=== PATIENT | male | born 1955 | race Caucasian/White ===

== ENCOUNTER → 2018-04-30 08:21 | Outpatient (CLI) | payer OTHER, SELFPAY ==
[2018-04-30 10:42] LABS: Absolute Lymphocyte Count 1.39 X10^3/ul (0.83-4.51); Absolute Neutrophil Count 2.6 X10^3/uL (2.0-7.7); Basophil# 0.05 X10^3/uL; Basophil% 1.1 % (0-1); Eosinophil# 0.21 X10^3/uL; Eosinophils% 4.5 % (0-5); Lymphocyte # 1.39 X10^3/ul (4.0); Mean Corp Hgb Conc 33.1 g/gl (32-36); Mean Corpuscular Hgb 30.6 pg (27.0-32.0); Mean Corpuscular Volume 92.5 fL (80-94); Mean Platelet Vol. 11.5 fl (6.2-12.0); Monocyte# 0.34 X10^3/uL; Monocyte% 7.3 % (0-10); Neutrophil # 2.64 X10^3/uL (2.7-7.7); Neutrophil % 57.1 % (47-70); Platelet Count 162 K/mm3 (150-450); RBC Distribution Width CV 13.6 % (11.6-14.6); RBC Distribution Width SD 46.1 fl (35.1-43.9); Red Blood Count 6.04 M/mm3 (4.6-6.2); White Blood Count 4.6 K/mm3 (4.4-11.0)
[2018-04-30 10:46] LABS: Hematocrit 55.9 % (40-54)
[2018-04-30 10:47] LABS: Hemoglobin 18.5 g/dl (13.0-16.5); POSITIVE COUNT NO; POSITIVE DIFFERENTIAL NO; POSITIVE MORPHOLOGY NO
[2018-04-30 11:11] LABS: AST(SGOT) 37 U/L (15-37); Alanine Aminotransfer ALT/SGPT 90 U/L (16-61); Anion Gap 8 (5-15); BUN 32 mg/dL (7-18); BUN/Creat Ratio 23.5 RATIO (10-20); Calcium,Total 8.9 mg/dL (8.5-10.1); Chloride 106 mmol/L (98-107); Cholesterol 183 mg/dL (200); Creatinine, Serum 1.36 mg/dL (0.70-1.30); EST Glomerular Filtration Rate 57 mL/min (>60); Est Glom Filt Rate - Afr Amer 69 mL/min (>60); Glucose 102 mg/dL (74-106); High Density Lipoprotein 63 mg/dL; Potassium 4.3 mmol/L (3.5-5.1); Sodium Level 140 mmol/L (136-145); Triglycerides 90 mg/dL; Very Low Density Lipoprotein 18 mg/dL (5-40)
[2018-05-02 10:44] LABS: Ferritin 160 ng/mL (26-388)
== END ==
PROVIDERS: Visit Provider Family Medicine
DX: I10 Essential (primary) hypertension (principal); E78.5 Hyperlipidemia, unspecified; R79.89 Other specified abnormal findings of blood chemistry; R74.8 Abnormal levels of other serum enzymes
CPT/HCPCS: 36415; 80048; 80061; 82728; 84403; 84450; 84460; 85025

== ENCOUNTER → 2018-06-06 11:08 | Outpatient (CLI) | payer OTHER, SELFPAY ==
[2018-06-06 14:09] LABS: Hematocrit 47.2 % (40-54); Hemoglobin 15.8 g/dl (13.0-16.5); Mean Corp Hgb Conc 33.5 g/gl (32-36); Mean Corpuscular Hgb 30.3 pg (27.0-32.0); Mean Corpuscular Volume 90.4 fL (80-94); Mean Platelet Vol. 11.3 fl (6.2-12.0); Platelet Count 187 K/mm3 (150-450); RBC Distribution Width CV 13.4 % (11.6-14.6); RBC Distribution Width SD 44.1 fl (35.1-43.9); Red Blood Count 5.22 M/mm3 (4.6-6.2); Scan Indicated on CBC? Y/N NO; White Blood Count 4.7 K/mm3 (4.4-11.0)
== END ==
PROVIDERS: Family Provider Family Medicine; PCP Family Medicine; Visit Provider Family Medicine
DX: D58.2 Other hemoglobinopathies (principal)
CPT/HCPCS: 36415; 85027

== ENCOUNTER → 2018-11-15 08:58 | Outpatient (CLI) | payer OTHER, SELFPAY ==
--- NOTE | 2018-11-15 09:02 | US_ITS ---
STUDY: ABDOMINAL ULTRASOUND - RIGHT UPPER QUADRANT REASON FOR VISIT: Male, 63 years old. One-year history of right upper quadrant pain. TECHNIQUE: Ultrasound evaluation of the right upper quadrant was performed with real-time and static novak-scale imaging. TECHNICAL QUALITY: Adequate. COMPARISON: None. FINDINGS: Liver: The liver measures 16.5 cm. Mild degree of fatty infiltration of the liver. The bile ducts are within normal limits. There is hepatic color flow. The direction of portal flow is hepatopetal. There is no demonstrated mass lesion. Gallbladder: Normal distended gallbladder. The gallbladder wall measures 2.6 mm. There is a negative sonographic Huddleston's sign. There is no pericholecystic fluid. There are multiple echogenic structures within the gallbladder, consistent with multiple gallstones. Common Bile Duct (C.B.D.): The common bile duct measures 3.8 mm. Pancreas: There is nonvisualization of the pancreas due to overlying bowel gas. Right Kidney: Normal size of the right kidney. The right kidney measures 10.1 cm x 5.8 cm x 5.4 cm. Normal renal cortex. The right cortex measures 1.6 cm. 2 cysts are seen. The larger measures 1.2 cm x 1.7 size by 1.7 cm. There is no right hydronephrosis. US/Abdomen Limited IMPRESSION: Gallstones. Mild degree of fatty infiltration of the liver. 2. Small right renal cysts. Electronically Signed: Sami Vallejo, at 12:38 EDT , Service support ,
== END ==
PROVIDERS: Family Provider Family Medicine; PCP Family Medicine; Referring Provider Family Medicine; Visit Provider Family Medicine
DX: R10.11 Right upper quadrant pain (principal)
CPT/HCPCS: 76705

== ENCOUNTER → 2018-11-27 10:13 | Outpatient (CLI) | payer OTHER, SELFPAY ==
[2018-11-26 14:02] VITALS: BMI 31.8
[2018-11-27 12:19] LABS: Absolute Lymphocyte Count 1.41 X10^3/ul (0.83-4.51); Absolute Neutrophil Count 3.2 X10^3/uL (2.0-7.7); Basophil# 0.03 X10^3/uL; Basophil% 0.6 % (0-1); Eosinophil# 0.07 X10^3/uL; Eosinophils% 1.3 % (0-5); Hematocrit 52.4 % (40-54); Hemoglobin 17.2 g/dl (13.0-16.5); Lymphocyte # 1.41 X10^3/ul (4.0); Lymphocyte % 27.2 % (19-41); Mean Corp Hgb Conc 32.8 g/gl (32-36); Mean Corpuscular Hgb 29.8 pg (27.0-32.0); Mean Corpuscular Volume 90.7 fL (80-94); Mean Platelet Vol. 11.3 fl (6.2-12.0); Monocyte# 0.51 X10^3/uL; Monocyte% 9.8 % (0-10); Neutrophil # 3.16 X10^3/uL (2.7-7.7); Neutrophil % 60.9 % (47-70); Platelet Count 214 K/mm3 (150-450); RBC Distribution Width CV 13.2 % (11.6-14.6); RBC Distribution Width SD 42.9 fl (35.1-43.9); Red Blood Count 5.78 M/mm3 (4.6-6.2); White Blood Count 5.2 K/mm3 (4.4-11.0)
[2018-11-27 12:24] LABS: POSITIVE COUNT NO; POSITIVE DIFFERENTIAL NO; POSITIVE MORPHOLOGY NO
[2018-11-27 12:39] LABS: AST(SGOT) 29 U/L (15-37); Alanine Aminotransfer ALT/SGPT 43 U/L (16-61); Albumin, Serum 3.9 g/dL (3.2-5.0); Alkaline Phosphatase 88 U/L (45-117); Anion Gap 9 (5-15); BUN 15 mg/dL (7-18); BUN/Creat Ratio 10.5 RATIO (10-20); Bilirubin, Direct 0.19 mg/dL (0.00-0.30); Calcium,Total 8.4 mg/dL (8.5-10.1); Chloride 105 mmol/L (98-107); Cholesterol 161 mg/dL (200); Creatinine, Serum 1.43 mg/dL (0.70-1.30); EST Glomerular Filtration Rate 53 mL/min (>60); Est Glom Filt Rate - Afr Amer 65 mL/min (>60); Globulin 3.2 g/dL (2.2-4.2); Glucose 100 mg/dL (74-106); High Density Lipoprotein 63 mg/dL; Potassium 4.2 mmol/L (3.5-5.1); Protein, Total 7.1 g/dL (6.4-8.2); Sodium Level 138 mmol/L (136-145); Triglycerides 92 mg/dL; Very Low Density Lipoprotein 18 mg/dL (5-40)
== END ==
PROVIDERS: Family Provider Family Medicine; PCP Family Medicine; Referring Provider Family Medicine; Visit Provider Family Medicine
DX: I10 Essential (primary) hypertension (principal); R79.89 Other specified abnormal findings of blood chemistry
CPT/HCPCS: 36415; 80048; 80061; 80076; 84403; 85025

== ENCOUNTER 2018-12-06 09:41 | Day surgery (SDC) | payer OTHER, SELFPAY ==
[2018-11-26 14:02] VITALS: BMI 31.8
[2018-12-06] VITALS (7 sets, daily range): BP systolic 97–150; BP diastolic 60–85; PULSE 65–75; RESP 16–17; TEMP 36.2–37; O2SAT 95–98; BMI 30.7
--- NOTE | 2018-12-06 | GASB_PTH ---
PATIENT: CHOCO PACHECO LOC: EN U#:[id number] AGE/SX: 63/M ROOM: RE12/06/[address]: Dr. Kevan Garza MD : 1955 BED: DIS: 12/06/2018 SPEC #: [id number] RECD: 12/06/18 13:37 STATUS: ABBY MORENA #: [id number] CAYDEN: 12/06/18 00:[address]: Kevan Garza DEPT: SURGICAL PATHOLOGY RECD BY: Mehran Sheffield ENTERED: 12/06/18 13:38 SP TYPE: Gastric Bx OTHR DR: Dr. Poly Pang MD Tissues: A - Gastric mucous membrane B - Gastric mucous membrane C - Gastric mucous membrane D - Rectum, NOS Procedures: Special Stain Group II Surgery Specimen Level IV Alcian Blue/PAS (control) HEADER OPERATION: Colonoscopy, EGD ([facility] – [place]) PRE-OP DIAGNOSIS: Right upper quadrant pain; history of colon polyps TISSUE SUBMITTED: A - Antral biopsy for H. pylori and pathology, B - GE junction biopsies, C - Periampullary biopsy, D - Rectal polyp biopsy MICROSCOPIC DIAGNOSIS A. Antral biopsy: Mild gastritis. See microscopic description and comment. B. GE junction, biopsy: Fragments of gastroesophageal mucosa with chronic inflammation. Intestinal metaplasia (goblet cell metaplasia) is not identified. See comment. C. Periampullary biopsy: Fragments of small intestinal mucosa, no pathologic diagnosis. D. Rectal polyp, biopsy: Fragments of hyperplastic polyp. SJ:dexter 12/09/18 COMMENT A. The results of immunohistochemistry for Helicobacter pylori will be reported separately ([id number]). B. Alcian blue/PAS stain with matched control is used in the evaluation of the specimen. MICROSCOPIC DESCRIPTION Slides are reviewed. A. The specimen shows fragments of gastric mucosa with chronic inflammatory cell infiltrates in the lamina propria consisting of lymphocytes and plasma cells, consistent with mild chronic gastritis. GROSS DESCRIPTION A - Received in fixative is one container labeled with the patient's name and designated antral biopsy. The specimen consists of multiple irregular fragments of light bolivar soft tissue that in aggregate measure 0.8 x 0.4 x 0.1 cm. The specimen is totally submitted in one cassette. B - Received in fixative is one container labeled with the patient's name and designated GE junction biopsy. The specimen consists of two irregular fragments of light bolivar soft tissue that in aggregate measure 0.8 x 0.2 x 0.1 cm. The specimen is totally submitted in one cassette. C - Received in fixative is one container labeled with the patient's name and designated periampullary biopsy. The specimen consists of multiple irregular fragments of light bolivar soft tissue that in aggregate measure 1 x 0.2 x 0.1 cm. The specimen is totally submitted in one cassette. D - Received in fixative is one container labeled with the patient's name and designated rectal polyp biopsy. The specimen consists of multiple irregular fragments of light bolivar soft tissue that in aggregate measure 0.6 x 0.3 x 0.1 cm. The specimen is totally submitted in one cassette. / SJ:rg 12/06/18 TC:3 CPT: 89034 x4, [id number]
--- NOTE | 2018-12-06 10:45 | IMM_PTH ---
PATIENT: CHOCO PACHECO LOC: EN U#:[id number] AGE/SX: 63/M ROOM: RE12/06/[address]: Dr. Kevan Garza MD : 1955 BED: DIS: 12/06/2018 SPEC #: [id number] RECD: 12/06/18 12:27 STATUS: ABBY RELesly #: [id number] CAYDEN: 12/06/18 10:[address]: Kevan Garza DEPT: IMMUNOHISTOCHEMISTRY RECD BY: Coretta Heard ENTERED: 12/06/18 14:48 SP TYPE: IMMUNO OTHR DR: Dr. Poly Pang MD Tissues: A - Stomach, NOS Procedures: H Pylori (initial) PHYSICIAN & INSTITUTION [place] [id number] SPECIMEN INFORMATION: Tissue Source: A - Antral biopsy Clinical Info: Right upper quadrant pain; history of colon polyps Specimen Number: [id number] CPT code: 61996 METHODOLOGY: Deparaffinized sections of prefer/formalin-fixed tissue or PAP/DQ stained slides are incubated with monoclonal/polyclonal antibodies/oligonucleotide probes. Localization is made via biotin free immunoperoxidase method. Appropriate controls are performed and reacted as expected. Results on target cell population are indicated in the following table: RESULTS: ANTIBODY / CLONE RESULT Block A H Pylori (polyclonal) negative These tests were developed and their performance characteristics determined by [facility]. They may not have been cleared or approved by the U.S. Food and Drug Administration. The FDA has determined that such clearance or approval is not necessary. INTERPRETATION: A. Antral biopsy: Negative for Helicobacter pylori organisms. SJ:dexter 12/09/18
--- NOTE | 2018-12-06 11:27 | OP.ENDO_ITS ---
12/06/2018 [address] [place] [address] Re : Upper GI endoscopy procedure for Reg Lozada Dear Dr. Pang This procedure was performed on Thursday, December 06, 2018. My impressions and recommendations are as follows: Impressions : - Mucosal variant in the duodenum. Biopsied. - Esophageal mucosal changes suspicious for Tristan's esophagus. Biopsied. - Biopsies were taken with a cold forceps for Helicobacter pylori testing. Recommendations : - Discharge patient to home. - Resume previous diet. - Continue present medications. - Await pathology results. My findings are described in the full procedure note, which is enclosed. If I can be of further assistance, please feel free to contact me at Doctor phone number(s): , Work: . Sincerely, Kevan Garza MD 12/06/2018 11:27:03 AM This report has been signed electronically.
--- NOTE | 2018-12-06 11:29 | OP.ENDO_ITS ---
12/06/2018 [address] [place] [address] Re : Colonoscopy procedure for Reg Lozada Dear Dr. Pang This procedure was performed on Thursday, December 06, 2018. My impressions and recommendations are as follows: Impressions : - One polyp in the rectum. Biopsied. - Internal hemorrhoids. Recommendations : - Repeat colonoscopy after studies are complete for surveillance based on pathology results. - Continue present medications. My findings are described in the full procedure note, which is enclosed. If I can be of further assistance, please feel free to contact me at Doctor phone number(s): , Work: . Sincerely, Kevan Garza MD 12/06/2018 11:29:07 AM This report has been signed electronically.
== END 2018-12-06 12:06 | disposition home or self-care (01) ==
LOC: EN 09:41 → AC 09:42
PROVIDERS: Family Provider Family Medicine; PCP Family Medicine; Referring Provider Family Medicine; Visit Provider Surgery
PROC: 0DJD8ZZ Inspection of Lower Intestinal Tract, Via Natural or Artificial Opening Endoscopic (ICD-10-PCS; CPT 45378; principal; 2018-12-06 10:40)
DX: K29.70 Gastritis, unspecified, without bleeding (principal); K21.9 Gastro-esophageal reflux disease without esophagitis; K62.1 Rectal polyp; K64.1 Second degree hemorrhoids; Z86.010 Personal history of colon polyps; K80.20 Calculus of gallbladder without cholecystitis without obstruction; E78.00 Pure hypercholesterolemia, unspecified; I10 Essential (primary) hypertension; Z79.82 Long term (current) use of aspirin; Z79.899 Other long term (current) drug therapy; Z87.891 Personal history of nicotine dependence
CPT/HCPCS: 43239; 45380; 88305; 88313; 88342; J7120

== ENCOUNTER → 2019-05-14 14:18 | Outpatient (CLI) | payer BC, SELFPAY ==
[2018-12-06 09:57] VITALS: BMI 30.7
[2019-05-14 15:45] LABS: Absolute Lymphocyte Count 1.59 X10^3/uL (0.83-4.51); Basophil# 0.07 X10^3/uL; Basophil% 1.1 % (0-1); Eosinophil# 0.07 X10^3/uL; Eosinophils% 1.1 % (0-5); Lymphocyte # 1.59 X10^3/ul (4.0); Lymphocyte % 24.8 % (19-41); Mean Corp Hgb Conc 33.9 g/dL (32-36); Mean Corpuscular Hgb 30.3 pg (27.0-32.0); Mean Corpuscular Volume 89.3 fL (80-94); Mean Platelet Vol. 10.7 fl (6.2-12.0); Monocyte# 0.67 X10^3/uL; Monocyte% 10.5 % (0-10); NRBC Flagged by Analyzer 0 % (0-5); Neutrophil # 3.99 X10^3/uL (2.7-7.7); Neutrophil % 62.2 % (47-70); Platelet Count 222 K/mm3 (150-450); RBC Distribution Width CV 13.2 % (11.6-14.6); RBC Distribution Width SD 43.4 fl (35.1-43.9); Red Blood Count 6.28 M/mm3 (4.6-6.2); White Blood Count 6.4 K/mm3 (4.4-11.0)
[2019-05-14 15:51] LABS: Hematocrit 56.1 % (40-54)
[2019-05-14 16:05] LABS: AST(SGOT) 26 U/L (15-37); Alanine Aminotransfer ALT/SGPT 44 U/L (16-61); Albumin, Serum 3.8 g/dL (3.2-5.0); Alkaline Phosphatase 77 U/L (45-117); Anion Gap 7 (5-15); BUN 17 mg/dL (7-18); BUN/Creat Ratio 13.6 RATIO (10-20); Bilirubin, Direct 0.16 mg/dL (0.00-0.30); Calcium,Total 8.8 mg/dL (8.5-10.1); Chloride 105 mmol/L (98-107); Creatinine, Serum 1.25 mg/dL (0.70-1.30); EST Glomerular Filtration Rate 62 mL/min (>60); Est Glom Filt Rate - Afr Amer 75 mL/min (>60); Globulin 3.6 g/dL (2.2-4.2); Glucose 84 mg/dL (74-106); Potassium 3.6 mmol/L (3.5-5.1); Protein, Total 7.4 g/dL (6.4-8.2); Sodium Level 139 mmol/L (136-145)
== END ==
PROVIDERS: Family Provider Family Medicine; PCP Family Medicine; Referring Provider Family Medicine; Visit Provider Family Medicine
DX: I10 Essential (primary) hypertension (principal); R79.89 Other specified abnormal findings of blood chemistry
CPT/HCPCS: 36415; 80048; 80076; 84403; 85025

== ENCOUNTER → 2019-06-05 16:47 | Outpatient (CLI) | payer BC, SELFPAY ==
[2018-12-06 09:57] VITALS: BMI 30.7
[2019-06-05 18:00] LABS: Absolute Lymphocyte Count 2.15 X10^3/uL (0.83-4.51); Absolute Neutrophil Count 4.2 X10^3/uL (2.0-7.7); Basophil# 0.07 X10^3/uL; Eosinophil# 0.18 X10^3/uL; Eosinophils% 2.5 % (0-5); Hematocrit 52.5 % (40-54); Hemoglobin 17.6 g/dL (13.0-16.5); Lymphocyte # 2.15 X10^3/ul (4.0); Lymphocyte % 29.5 % (19-41); Mean Corp Hgb Conc 33.5 g/dL (32-36); Mean Corpuscular Hgb 30.2 pg (27.0-32.0); Mean Corpuscular Volume 90.2 fL (80-94); Mean Platelet Vol. 10.9 fl (6.2-12.0); Monocyte# 0.66 X10^3/uL; Monocyte% 9.1 % (0-10); NRBC Flagged by Analyzer 0 % (0-5); Neutrophil # 4.22 X10^3/uL (2.7-7.7); Neutrophil % 57.8 % (47-70); Platelet Count 235 K/mm3 (150-450); RBC Distribution Width CV 13.2 % (11.6-14.6); RBC Distribution Width SD 43.6 fl (35.1-43.9); Red Blood Count 5.82 M/mm3 (4.6-6.2); White Blood Count 7.3 K/mm3 (4.4-11.0)
== END ==
PROVIDERS: Family Provider Family Medicine; PCP Family Medicine; Referring Provider Family Medicine; Visit Provider Family Medicine
DX: D58.2 Other hemoglobinopathies (principal)
CPT/HCPCS: 36415; 85025

== ENCOUNTER → 2020-01-05 08:22 | Outpatient (CLI) | payer BC, SELFPAY ==
[2020-01-05 08:18] VITALS: BMI 28.7
--- NOTE | 2020-01-05 08:24 | RAD_ITS ---
STUDY: X-RAY - LEFT ANKLE REASON FOR EXAM: Male, 64 years old. left achilles pain, no trauma TECHNIQUE: 3 view(s) of the ankle. COMPARISON: None. FINDINGS: Normal visualized distal tibia and fibula. Normal medial and lateral malleoli. Normal tibiotalar articulation and ankle mortise. Normal visualized talus and calcaneus. The visualized subtalar, talonavicular, calcaneocuboid and tarsal articulations are normal. There is swelling in lower part of the Achilles tendon suggesting partial tear. RAD/Ankle min 3 Views IMPRESSION: There is swelling in lower part of the Achilles tendon suggesting partial tear. Electronically Signed: Rachel Jeffers, at 10:18 EDT Tel , Service support ,
== END ==
PROVIDERS: PCP Family Medicine; Referring Provider Physician Assistant; Visit Provider Physician Assistant
DX: M25.572 Pain in left ankle and joints of left foot (principal)
CPT/HCPCS: 73610

== ENCOUNTER → 2020-02-04 15:40 | Outpatient (CLI) | payer BC, SELFPAY ==
[2020-01-05 08:18] VITALS: BMI 28.7
[2020-02-04 18:18] LABS: Absolute Neutrophil Count 4.8 X10^3/uL (2.0-7.7); Basophil# 0.06 X10^3/uL; Basophil% 0.8 % (0-1); Eosinophils% 1.4 % (0-5); Hematocrit 50.6 % (40-54); Hemoglobin 16.7 g/dL (13.0-16.5); Lymphocyte % 19.8 % (19-41); Mean Corpuscular Hgb 30.8 pg (27.0-32.0); Mean Corpuscular Volume 93.4 fL (80-94); Monocyte# 0.65 X10^3/uL; Monocyte% 9.2 % (0-10); NRBC Flagged by Analyzer 0 % (0-5); Neutrophil # 4.83 X10^3/uL (2.7-7.7); Neutrophil % 68.5 % (47-70); Platelet Count 202 K/mm3 (150-450); RBC Distribution Width CV 13.4 % (11.6-14.6); RBC Distribution Width SD 45.6 fl (35.1-43.9); Red Blood Count 5.42 M/mm3 (4.6-6.2); White Blood Count 7.1 K/mm3 (4.4-11.0)
[2020-02-04 18:34] LABS: AST(SGOT) 38 U/L (15-37); Alanine Aminotransfer ALT/SGPT 68 U/L (16-61); Anion Gap 9 (5-15); BUN 23 mg/dL (7-18); Calcium,Total 8.9 mg/dL (8.5-10.1); Chloride 105 mmol/L (98-107); Cholesterol 180 mg/dL (200); Creatinine, Serum 1.21 mg/dL (0.70-1.30); EST Glomerular Filtration Rate 65 mL/min (>60); Est Glom Filt Rate - Afr Amer 78 mL/min (>60); Glucose 82 mg/dL (74-106); High Density Lipoprotein 71 mg/dL; Potassium 3.8 mmol/L (3.5-5.1); Sodium Level 139 mmol/L (136-145); Triglycerides 104 mg/dL; Very Low Density Lipoprotein 21 mg/dL (5-40)
== END ==
PROVIDERS: PCP Family Medicine; Visit Provider Family Medicine
DX: I10 Essential (primary) hypertension (principal); R79.89 Other specified abnormal findings of blood chemistry; E78.5 Hyperlipidemia, unspecified
CPT/HCPCS: 36415; 80048; 80061; 84403; 84450; 84460; 85025

== ENCOUNTER → 2020-10-26 09:49 | Outpatient (CLI) | payer BC, SELFPAY ==
[2020-09-16 13:16] VITALS: BMI 31.2
[2020-10-26 12:14] LABS: Absolute Lymphocyte Count 1.61 X10^3/uL (0.83-4.51); Absolute Neutrophil Count 7.1 X10^3/uL (2.0-7.7); Basophil# 0.07 X10^3/uL; Basophil% 0.7 % (0-1); Eosinophil# 0.12 X10^3/uL; Eosinophils% 1.2 % (0-5); Hematocrit 47.2 % (40-54); Hemoglobin 15.8 g/dL (13.0-16.5); Lymphocyte # 1.61 X10^3/ul (4.0); Lymphocyte % 16.5 % (19-41); Mean Corp Hgb Conc 33.5 g/dL (32-36); Mean Corpuscular Hgb 30.4 pg (27.0-32.0); Mean Corpuscular Volume 90.9 fL (80-94); Mean Platelet Vol. 11.5 fl (6.2-12.0); Monocyte% 8.2 % (0-10); NRBC Flagged by Analyzer 0 % (0-5); Neutrophil % 72.9 % (47-70); Platelet Count 218 K/mm3 (150-450); RBC Distribution Width CV 13.2 % (11.6-14.6); RBC Distribution Width SD 44.1 fl (35.1-43.9); Red Blood Count 5.19 M/mm3 (4.6-6.2); White Blood Count 9.8 K/mm3 (4.4-11.0)
[2020-10-26 12:33] LABS: Anion Gap 7 (5-15); BUN 27 mg/dL (7-18); BUN/Creat Ratio 17.3 RATIO (10-20); Chloride 104 mmol/L (98-107); Cholesterol 193 mg/dL (200); Creatinine, Serum 1.56 mg/dL (0.70-1.30); EST Glomerular Filtration Rate 48 mL/min (>60); Est Glom Filt Rate - Afr Amer 58 mL/min (>60); Glucose 74 mg/dL (74-106); High Density Lipoprotein 80 mg/dL; Potassium 4.4 mmol/L (3.5-5.1); Sodium Level 137 mmol/L (136-145); Triglycerides 99 mg/dL; Very Low Density Lipoprotein 20 mg/dL (5-40)
== END ==
PROVIDERS: PCP Family Medicine; Referring Provider Family Medicine; Visit Provider Family Medicine
DX: E78.5 Hyperlipidemia, unspecified (principal); I10 Essential (primary) hypertension
CPT/HCPCS: 36415; 80048; 80061; 85025

== ENCOUNTER → 2021-05-27 16:05 | Outpatient (CLI) | payer BC, SELFPAY ==
[2021-05-27 17:56] LABS: Absolute Lymphocyte Count 1.83 X10^3/uL (0.83-4.51); Absolute Neutrophil Count 3.4 X10^3/uL (2.0-7.7); Basophil# 0.04 X10^3/uL; Basophil% 0.7 % (0-1); Eosinophil# 0.22 X10^3/uL; Eosinophils% 3.6 % (0-5); Hematocrit 48.9 % (40-54); Hemoglobin 16.3 g/dL (13.0-16.5); Lymphocyte # 1.83 X10^3/ul (0.83-4.51); Mean Corp Hgb Conc 33.3 g/dL (32-36); Mean Corpuscular Hgb 30.1 pg (27.0-32.0); Mean Corpuscular Volume 90.2 fL (80-94); Mean Platelet Vol. 11.6 fl (6.2-12.0); Monocyte# 0.58 X10^3/uL; Monocyte% 9.5 % (0-10); NRBC Flagged by Analyzer 0 % (0-5); Neutrophil # 3.42 X10^3/uL (2.7-7.7); Platelet Count 228 K/mm3 (150-450); RBC Distribution Width SD 39.7 fl (35.1-43.9); Red Blood Count 5.42 M/mm3 (4.6-6.2); White Blood Count 6.1 K/mm3 (4.4-11.0)
[2021-05-27 18:15] LABS: Anion Gap 8 (5-15); BUN 25 mg/dL (7-18); BUN/Creat Ratio 17.5 RATIO (10-20); Calcium,Total 9.1 mg/dL (8.5-10.1); Chloride 104 mmol/L (98-107); Cholesterol 189 mg/dL (200); Creatinine, Serum 1.43 mg/dL (0.70-1.30); EST Glomerular Filtration Rate 53 mL/min (>60); Est Glom Filt Rate - Afr Amer 64 mL/min (>60); Glucose 93 mg/dL (74-106); High Density Lipoprotein 62 mg/dL; Potassium 3.8 mmol/L (3.5-5.1); Sodium Level 138 mmol/L (136-145); Triglycerides 132 mg/dL; Very Low Density Lipoprotein 26 mg/dL (5-40)
== END ==
PROVIDERS: PCP Family Medicine; Referring Provider Family Medicine; Visit Provider Family Medicine
DX: I10 Essential (primary) hypertension (principal); E78.5 Hyperlipidemia, unspecified; R79.89 Other specified abnormal findings of blood chemistry
CPT/HCPCS: 36415; 80048; 80061; 85025

== ENCOUNTER 2021-09-15 13:59 | Outpatient (CLI) | payer BC, SELFPAY | END 2021-09-15 23:59 | disposition short-term general hospital (02) | LOC: LABSPEC 14:00 | PROVIDERS: PCP Family Medicine; Referring Provider Physician Assistant; Visit Provider Physician Assistant | DX: U07.1 COVID-19 (principal) | CPT/HCPCS: 87635; U0003; U0005 ==

== ENCOUNTER → 2022-03-14 | Outpatient (CLI) | payer BC, SELFPAY ==
[2022-03-14 12:30] LABS: Erythrocyte Sedimentation Rate 8 mm/hr (0-20)
[2022-03-14 12:35] LABS: Absolute Lymphocyte Count 1.41 X10^3/uL (0.83-4.51); Absolute Neutrophil Count 2.5 X10^3/uL (2.0-7.7); Basophil# 0.04 X10^3/uL; Basophil% 0.9 % (0-1); Eosinophil# 0.11 X10^3/uL; Eosinophils% 2.5 % (0-5); Hematocrit 51.2 % (40-54); Hemoglobin 16.8 g/dL (13.0-16.5); Lymphocyte # 1.41 X10^3/ul (0.83-4.51); Lymphocyte % 31.5 % (19-41); Mean Corp Hgb Conc 32.8 g/dL (32-36); Mean Corpuscular Hgb 29.9 pg (27.0-32.0); Mean Corpuscular Volume 91.3 fL (80-94); Mean Platelet Vol. 11.3 fl (6.2-12.0); Monocyte# 0.43 X10^3/uL; Monocyte% 9.6 % (0-10); NRBC Flagged by Analyzer 0 % (0-5); Neutrophil # 2.48 X10^3/uL (2.7-7.7); Neutrophil % 55.3 % (47-70); Platelet Count 196 K/mm3 (150-450); RBC Distribution Width CV 12.8 % (11.6-14.6); Red Blood Count 5.61 M/mm3 (4.6-6.2); White Blood Count 4.5 K/mm3 (4.4-11.0)
[2022-03-14 13:03] LABS: AST(SGOT) 25 U/L (15-37); Alanine Aminotransfer ALT/SGPT 45 U/L (16-61); Albumin, Serum 3.7 g/dL (3.2-5.0); Alkaline Phosphatase 79 U/L (45-117); Anion Gap 7 (5-15); BUN 20 mg/dL (7-18); BUN/Creat Ratio 15.7 RATIO (10-20); Calcium,Total 9.1 mg/dL (8.5-10.1); Chloride 105 mmol/L (98-107); Creatinine, Serum 1.27 mg/dL (0.70-1.30); EST Glomerular Filtration Rate 61 mL/min (>60); Est Glom Filt Rate - Afr Amer 73 mL/min (>60); Globulin 3.7 g/dL (2.2-4.2); Glucose 107 mg/dL (74-106); Potassium 3.7 mmol/L (3.5-5.1); Protein, Total 7.4 g/dL (6.4-8.2); Sodium Level 137 mmol/L (136-145); Thyroid Stim Hormone (TSH) 1.56 uIU/mL (0.358-3.74)
== END | disposition home or self-care (01) ==
LOC: MFPLAB 10:15
PROVIDERS: PCP Family Medicine; Referring Provider Family Medicine; Visit Provider Family Medicine
DX: R53.81 Other malaise (principal)
CPT/HCPCS: 36415; 80053; 84443; 85025; 85652

== ENCOUNTER → 2022-09-01 | Outpatient (CLI) | payer MEDICARE, OTHER, SELFPAY ==
--- NOTE | 2022-09-01 08:12 | CT_ITS ---
STUDY: CT MAXILLOFACIAL SINUSES REASON FOR EXAM: Male, 67 years old. SINUSITIS RADIATION DOSAGE (If Supplied By Facility): CTDIvol = ( 33.06 ) mGy, DLP = ( 804.92 ) mGycm TECHNIQUE: The patient was scanned in a multi detector CT scanner. High resolution axial imaging was performed without the administration of intravenous contrast material. Sagittal and coronal images were reconstructed. Individualized dose optimization techniques were used for this CT. COMPARISON: None. FINDINGS: FRONTAL SINUSES: Normal aeration, without mucosal inflammatory disease. ETHMOIDAL SINUSES: Normal aeration, without mucosal inflammatory disease. MAXILLARY SINUSES: Normal aeration, without mucosal inflammatory disease. SPHENOIDAL SINUSES: Minimal mucosal thickening of the right sphenoid sinus. There is patency of the bilateral maxillary infundibuli with normal uncinate processes, ethmoid bullae, and hiatus semilunaris. Normal bilateral middle turbinates. Normal bilateral inferior turbinates. There is a mild left sided nasal septal deviation, but without a nasal septal spur. There is patency of the bilateral nasal airways. The visualized osseous structures are normal. The visualized bilateral orbital contents are normal. CT/Sinus/Facial Bone IMPRESSION: Minimal mucosal thickening of the right sphenoid sinus. Minimal left-sided nasal septal deviation. Electronically Signed: Sami Vallejo MD at 9:20 EST ,
== END | disposition home or self-care (01) ==
PROVIDERS: PCP Family Medicine; Referring Provider Otolaryngology; Visit Provider Otolaryngology
DX: J34.2 Deviated nasal septum (principal); J32.8 Other chronic sinusitis
CPT/HCPCS: 70486

== ENCOUNTER → 2024-06-27 | Outpatient (CLI) | payer MEDICARE, OTHER, SELFPAY ==
[2024-06-27 12:36] LABS: Protein, Urine (Random) 11.9 mg/dL (<11.9); Protein:Creat Ratio 132 mg/g CRE (0-200)
[2024-06-27 12:55] LABS: AST(SGOT) 18 U/L (15-37); Alanine Aminotransfer ALT/SGPT 46 U/L (16-61); Anion Gap 4 (5-15); BUN 21 mg/dL (7-18); BUN/Creat Ratio 17.2 RATIO (10-20); Calcium,Total 8.9 mg/dL (8.5-10.1); Chloride 109 mmol/L (98-107); Cholesterol 208 mg/dL (200); Creatinine, Serum 1.22 mg/dL (0.70-1.30); EST Glomerular Filtration Rate 63 mL/min (>60); Est Glom Filt Rate - Afr Amer 76 mL/min (>60); Glucose 97 mg/dL (74-106); High Density Lipoprotein 64 mg/dL; Potassium 3.9 mmol/L (3.5-5.1); Sodium Level 141 mmol/L (136-145); Triglycerides 113 mg/dL; Very Low Density Lipoprotein 23 mg/dL (5-40)
== END | disposition home or self-care (01) ==
LOC: MFPLAB 09:50
PROVIDERS: PCP Family Medicine; Visit Provider Family Medicine
DX: E78.5 Hyperlipidemia, unspecified (principal); I10 Essential (primary) hypertension
CPT/HCPCS: 36415; 80048; 80061; 82570; 84156; 84443; 84450; 84460

== ENCOUNTER → 2025-07-13 | Outpatient (CLI) | payer MEDICARE, SELFPAY ==
[2025-07-13 17:34] LABS: Hematocrit 49.6 % (40-54); Hemoglobin 16.8 g/dL (13.0-16.5); Mean Corp Hgb Conc 33.9 g/dL (32-36); Mean Corpuscular Volume 88.6 fL (80-94); Mean Platelet Vol. 10.8 fl (6.2-12.0); Platelet Count 231 K/mm3 (150-450); RBC Distribution Width CV 12.3 % (11.6-14.6); RBC Distribution Width SD 40.6 fl (35.1-43.9); Red Blood Count 5.60 M/mm3 (4.6-6.2); White Blood Count 8.3 K/mm3 (4.4-11.0)
[2025-07-13 18:47] LABS: AST(SGOT) 27 U/L (<=37); Alanine Aminotransfer ALT/SGPT 40 U/L (<=46); Albumin, Serum 4.7 g/dL (3.4-4.8); Alkaline Phosphatase 69 U/L (40-129); Anion Gap 17 (5-15); BUN 22 mg/dL (4-19); BUN/Creat Ratio 18.1 RATIO (10-20); Calcium,Total 9.7 mg/dL (7.6-11.0); Carbon Dioxide 22.6 mmol/L (21.0-32.0); Chloride 101 mmol/L (98-108); Cholesterol 250 mg/dL (<=200); Globulin 2.9 g/dL (2.2-4.2); Glucose 88 mg/dL (70-99); Low Density Lipoprotein Calc. 164 mg/dL; Potassium 3.6 mmol/L (3.3-5.1); Triglycerides 104 mg/dL; Troponin T High Sensitivity 10 ng/L (<=22); Very Low Density Lipoprotein 21 mg/dL (5-40); Vitamin D,25 Hydroxy 24.9 ng/mL (30-100); cholesterol:hdl ratio screen 3.68
[2025-07-20 12:09] LABS: Testosterone, % Free 2.50 % (1.50-4.20); Testosterone, Free 5.80 ng/dL (5.00-21.00)
== END | disposition home or self-care (01) ==
LOC: MTLAB 16:39
PROVIDERS: PCP Family Medicine; Referring Provider Family Medicine; Visit Provider Family Medicine
DX: E78.5 Hyperlipidemia, unspecified (principal); I10 Essential (primary) hypertension; R07.9 Chest pain, unspecified; R79.89 Other specified abnormal findings of blood chemistry
CPT/HCPCS: 36415; 80053; 80061; 82306; 84402; 84403; 84443; 84484; 85027

== ENCOUNTER → 2025-08-04 | Outpatient (CLI) | payer MEDICARE, SELFPAY ==
--- NOTE | 2025-08-04 07:07 | ECHOD_ITS ---
Reason For Study Reason For Study: CHEST PAIN Procedure This was a 2D Doppler, Color Flow transthoracic echocardiogram. The patient is in sinus rhythm. Exam performed in department. Left Ventricle Normal LV size. The left ventricular ejection fraction is 60 %. No regional wall motion abnormalities noted. Right Ventricle Normal RV size. Normal systolic function. Atria Normal left atrium. Normal right atrium. Mitral Valve Normal mitral valve. Tricuspid Valve Normal tricuspid valve. Aortic Valve Normal aortic valve. Pulmonic Valve Normal pulmonic valve. Great Vessels Normal aortic root. The pulmonary artery is normal size. Inferior vena cava collapse with respiration. Pericardium/Pleural No pericardial effusion. MMode/2D Measurements & Calculations LVIDd: 5.1 cm IVSd: 1.00 cm LVOT diam: 2.1 cm LVIDs: 3.3 cm LVPWd: 1.0 cm LVOT area: 3.4 cm2 RVDd: 4.2 cm FS: 36.0 % Ao root diam: 3.3 cm asc Aorta Diam: 3.3 cm LAV(MOD- bp): 49.9 ml LAV(MOD- bp) Indexed: 23.5 ml/m2 LAV(MOD- sp2): 61.0 ml LAV(MOD- sp4): 39.2 ml LVAd ap4: 31.6 cm2 LVAd ap2: 30.1 cm2 EDV(MOD- bp): 100.8 ml LVLd ap4: 8.1 cm LVLd ap2: 8.0 cm ESV(MOD- bp): 41.6 ml EDV(MOD-sp4): 100.5 ml EDV(MOD-sp2): 97.7 ml EF(MOD- bp): 58.7 % EDV(sp4-el): 104.1 ml EDV(sp2-el): 96.3 ml LVAs ap4: 17.7 cm2 LVAs ap2: 18.7 cm2 LVLs ap4: 6.8 cm LVLs ap2: 7.1 cm ESV(MOD-sp4): 38.6 ml ESV(MOD-sp2): 44.8 ml ESV(sp4-el): 39.2 ml ESV(sp2-el): 41.8 ml EF(MOD-sp4): 61.6 % EF(MOD-sp2): 54.1 % EF(sp4-el): 62.4 % SV(MOD-sp4): 61.9 ml SV(MOD-sp2): 52.8 ml SV(sp4- el): 65.0 ml SI(MOD-sp4): 29.2 ml/m2 SI(MOD-sp2): 24.9 ml/m2 Ao sinus diam: 3.[address] Junction: 2.8 cm LA A4 area: 16.5 cm2 LA dimension(2D): 3.9 cm TAPSE: 2.1 cm RA A4 area: 16.0 cm2 Time Measurements MV dec time: 0.20 sec Doppler Measurements & Calculations MV E max moses: 75.9 cm/sec Lat Peak E' Moses: 11.5 cm/sec Med Peak E' Moses: 9.7 cm/sec MV A max moses: 72.4 cm/sec E/E' lat: 6.6 E/E' med: 7.9 MV E/A: 1.0 MV dec slope: 387.5 cm/sec2 Ao V2 max: 177.2 cm/sec LV V1 max: 139.1 cm/sec Ao max P.6 mmHg LV V1 max P.7 mmHg Ao V2 mean: 112.7 cm/sec LV V1 mean P.8 mmHg Ao mean P.9 mmHg LV V1 mean: 89.5 cm/sec Ao V2 VTI: 36.0 cm LV V1 VTI: 27.8 cm AV (velocity ratio): 0.77 RAMON(I,D): 2.7 cm2 RAMON(V,D): 2.7 cm2 SV(LVOT): 95.6 ml PA V2 max: 104.6 cm/sec ECHO/Echo Complete Interpretation Summary Normal LV size. The left ventricular ejection fraction is 60 %. Structurally normal valves. Ordering Physician: Victorino Benz Referring Physician: Victorino Benz Performed By: Sandra Catalan RDCS
--- OUTSIDE RECORDS SUMMARY | 2025-08-04 07:08 | XMS RPT_ITS | CCD ---
Author Organization [facility] Care Team Providers Care [employer] Operator Name Role Phone Poly Pang Attending Unavailable Poly Pang Primary Care Unavailable Medications Current Medications Medication Drug Class(es) Dates Sig (Normalized) Sig (Original) amLODIPine 10 mg oral tablet (2 sources) Dihydropyridine Calcium Channel [employer]by Start: 11-27-19 19 take 10 mg by mouth once daily Amlodipine Active 10 MG PO DAILY November 25, 2018 11:00pm hydroCHLOROthiazide 12.5 mg oral tablet (2 sources) Thiazide Diuretic Start: 11-27-19 19 take 12.5 mg by mouth once daily Hydrochlorothiazide Active 12.5 MG PO DAILY November 25, 2018 11:00pm hydroCHLOROthiazide 12.5 mg / lisinopril 20 mg oral tablet (2 sources) Thiazide Diuretic, Angiotensin Converting Enzyme Inhibitor Start: 09-16-19 21 take 1 tablet by mouth once daily Lisinopril-Hydrochlor othiazide Active 1 TABLET PO DAILY September 16, 2020 12:00am rosuvastatin calcium 40 mg oral tablet (2 sources) HMG-CoA Reductase Inhibitor Start: 11-27-19 19 take 40 mg by mouth once daily Rosuvastatin Active 40 MG PO DAILY November 25, 2018 11:00pm sucralfate 1000 mg oral tablet (2 sources) Aluminum Complex Start: 11-27-19 19 take 1 g by mouth at bedtime Sucralfate Active 1 GM PO before meals and at bedtime 120 November 25, 2018 11:00pm tadalafil 2.5 mg oral tablet (2 sources) Phosphodiesterase 5 Inhibitor Start: 11-27-19 19 take 1 tablet by mouth once daily Tadalafil (Cialis) 2.5 mg tablet Active 2.5 MG PO DAILY November 25, 2018 11:00pm Completed/Discontinued Medications Medication Drug Class(es) Dates Sig (Normalized) Sig (Original) anastrozole 1 mg oral tablet (2 sources) Aromatase Inhibitor Start: 09-16-2020 End: 09-16-2020 take 0.25 mg by mouth every week Anastrozole Discontinued 0.25 MG PO .weekly September 16, 2020 12:00am September 16, 2020 6:31pm aspirin 81 mg delayed release oral tablet (2 sources) Platelet Aggregation Inhibitor, Nonsteroidal Anti-inflammatory Drug Start: 11-26-2018 End: 09-16-2020 Aspirin (Adult Low Dose Aspirin) 81 mg tablet,delayed release (DR/EC) Discontinued 81 MG PO DAILY November 25, 2018 11:00pm September 16, 2020 1:17pm meloxicam 15 mg oral tablet (2 sources) Nonsteroidal Anti-inflammatory Drug Start: 01-05-2020 End: 09-16-2020 take 15 mg by mouth once daily Meloxicam Discontinued 15 MG PO DAILY January 04, 2020 11:00pm September 16, 2020 1:18pm omeprazole 20 mg delayed release oral tablet (2 sources) Proton Pump Inhibitor Start: 11-26-2018 End: 09-16-2020 take 20 mg by mouth once daily Omeprazole Discontinued 20 MG PO DAILY 60 November 25, 2018 11:00pm September 16, 2020 1:18pm 1 ml testosterone cypionate 200 mg/ml injection (2 sources) Androgen Start: 11-26-2018 End: 09-16-2020 inject 200 mg by intramuscular injection every week Testosterone Cypionate (Depo-Testosterone ) 200 mg/mL oil Discontinued 200 MG IM EVERY WEEK November 25, 2018 11:00pm September 16, 2020 6:30pm Problems Problem Classification Problem Date Documented Da te Episodic/Chronic Abdominal pain (2 sources) Right upper quadrant pain; Translations: [Right upper quadrant pain] 11-26-2018 Episodic Biliary tract disease (2 sources) Biliary calculus; Translations: [Calculus of gallbladder without cholecystitis without obstruction] 11-26-2018 Episodic Other and unspecified benign neoplasm (2 sources) History of polyp of colon; Translations: [Personal history of colonic polyps] 11-26-2018 Episodic Other endocrine disorders (2 sources) Male hypogonadism; Translations: [Testicular hypofunction] 09-16-2020 Chronic Results Test Name Value Interpretation Reference Range Facil ity AST(SGOT)on 06-27-2024 AST [Catalytic activity/Vol] 18 U/L Normal 15-37 [facility] Comment on above: Performed By: #### L 501.4100, L501.4405, L501.0900, L501.9520, L500.4100, L500.2500 #### [facility] [address] [place], [address] Alanine Aminotransferas (SGP T)on 06-27-2024 ALT [Catalytic activity/Vol] 46 U/L Normal 16-61 [facility] Comment on above: Performed By: #### L 501.4100, L501.4405, L501.0900, L501.9520, L500.4100, L500.2500 #### [facility] [address] [place], [address] Basic Metabolic Profile (BMP )on 06-27-2024 BUN/CRE 17.2 RATIO Normal 10-20 [facility] Comment on above: Performed By: #### L 501.4100, L501.4405, L501.0900, L501.9520, L500.4100, L500.2500 #### [facility] [address] [place], [address] CA,Total 8.9 mg/dL Normal 8.5-10.1 [facility] Comment on above: Performed By: #### L 501.4100, L501.4405, L501.0900, L501.9520, L500.4100, L500.2500 #### [facility] [address] [place], [address] Chloride [Moles/Vol] 109 mmol/L High 98-107 [facility] Comment on above: Performed By: #### L 501.4100, L501.4405, L501.0900, L501.9520, L500.4100, L500.2500 #### [facility] [address] [place], [address] CO2 [Moles/Vol] 28.0 mmol/L Normal 21.0-32.0 [facility] Comment on above: Performed By: #### L 501.4100, L501.4405, L501.0900, L501.9520, L500.4100, L500.2500 #### [facility] [address] [place], [address] Creatinine [Mass/Vol] 1.22 mg/dL Normal 0.70-1.30 [facility] Comment on above: Result Comment: The validity of the calculated GFR GFRAA in patients over 70 years has not been determined. Clinical correlation is essential. Performed By: #### L 501.4100, L501.4405, L501.0900, L501.9520, L500.4100, L500.2500 #### [facility] [address] [place], [place], [id number] EST GFR - AA 76 mL/min Normal >60 [facility] Comment on above: Result Comment: Afri can Lebanese GFR Calc Performed By: #### L 501.4100, L501.4405, L501.0900, L501.9520, L500.4100, L500.2500 #### [facility] [address] [place], [address] GAP 4 Low 5-15 [facility] Comment on above: Performed By: #### L 501.4100, L501.4405, L501.0900, L501.9520, L500.4100, L500.2500 #### [facility] [address] [place], [place], [id number] [phone] GFR/1.73 sq M.predicted among non-blacks MDRD (S/P/Bld) [Vol rate/Area] 63 mL/min/{1.73_m2} Normal >60 [facility] Comment on above: Result Comment: Non- GFR Calc Performed By: #### L 501.4100, L501.4405, L501.0900, L501.9520, L500.4100, L500.2500 #### [facility] [address] [place], [address] Glucose [Mass/Vol] 97 mg/dL Normal 74-106 [facility] Comment on above: Performed By: #### L 501.4100, L501.4405, L501.0900, L501.9520, L500.4100, L500.2500 #### [facility] [address] [place], [address] Potassium [Moles/Vol] 3.9 mmol/L Normal 3.5-5.1 [facility] Comment on above: Performed By: #### L 501.4100, L501.4405, L501.0900, L501.9520, L500.4100, L500.2500 #### [facility] [address] [place], [address] Sodium [Moles/Vol] 141 mmol/L Normal 136-145 [facility] Comment on above: Performed By: #### L 501.4100, L501.4405, L501.0900, L501.9520, L500.4100, L500.2500 #### [facility] [address] [place], [address] Urea nitrogen [Mass/Vol] 21 mg/dL High 7-18 [facility] Comment on above: Performed By: #### L 501.4100, L501.4405, L501.0900, L501.9520, L500.4100, L500.2500 #### [facility] [address] [place], [address] Lipid Profileon 06-27-2024 Cholesterol [Mass/Vol] 208 mg/dL High 200 [facility] Comment on above: Result Comment: <200 mg/dL Desirable 200-240 mg/dL Borderline >240 mg/dL High Risk Performed By: #### L 501.4100, L501.4405, L501.0900, L501.9520, L500.4100, L500.2500 #### [facility] [address] [place], [address] Cholesterol in HDL [Mass/Vol] 64 mg/dL Normal [facility] Comment on above: Result Comment: The drugs N-Acetylcysteine and Metamizole may falsely depress this assay. Reference Range HDL <40 mg/dL Low HDL Cholesterol HDL >or= 60 mg/dL High HDL Cholesterol Performed By: #### L 501.4100, L501.4405, L501.0900, L501.9520, L500.4100, L500.2500 #### [facility] [address] [place], [address] Cholesterol in LDL [Mass/Vol] 121 mg/dL Normal 0-130 [facility] Comment on above: Performed By: #### L 501.4100, L501.4405, L501.0900, L501.9520, L500.4100, L500.2500 #### [facility] [address] [place], [address] Cholesterol in VLDL [Mass/Vol] 23 mg/dL Normal 5-40 [facility] Comment on above: Performed By: #### L 501.4100, L501.4405, L501.0900, L501.9520, L500.4100, L500.2500 #### [facility] [address] [place], [address] Triglyceride [Mass/Vol] 113 mg/dL Normal [facility] Comment on above: Result Comment: The drugs N-Acetylcysteine and Metamizole may falsely depress this assay. Serum Triglycerides Reference Interval Normal <150 mg/dL Borderline high 150 - 199 mg/dL High 200 - 499 mg/dL Very High > or = 500 mg/dL Performed By: #### L 501.4100, L501.4405, L501.0900, L501.9520, L500.4100, L500.2500 #### [facility] [address] [place], [address] Protein+Creatinine Ratio,Uri neon 06-27-2024 PROT:CRE RATIO 132 mg/g CRE Normal 0-200 [facility] Comment on above: Performed By: #### L 501.4100, L501.4405, L501.0900, L501.9520, L500.4100, L500.2500 #### [facility] [address] [place], [address] Protein (U) [Mass/Vol] 11.9 mg/dL High <11.9 [facility] Comment on above: Performed By: #### L 501.4100, L501.4405, L501.0900, L501.9520, L500.4100, L500.2500 #### [facility] [address] [place], [address] UR CREAT 90.10 mg/dL Normal NO RANGE EST. [facility] Comment on above: Performed By: #### L 501.4100, L501.4405, L501.0900, L501.9520, L500.4100, L500.2500 #### [facility] [address] [place], [address] Thyroid Stim Hormone (TSH)on 06-27-2024 TSH 1.430 uIU/mL Normal 0.358-3.740 [facility] Comment on above: Performed By: #### L 501.4100, L501.4405, L501.0900, L501.9520, L500.4100, L500.2500 #### [facility] [address] [place], [address] Absolute lymphocyte counton 03-14-2022 Lymphocytes Auto (Unsp spec) [#/Vol] 1.41 10*3/uL 0.83-4.51 [facility] Work Phone: Basophil percentageon 2021 Basophils/100 WBC (Bld) 0.9 % 0-1 [facility] Work Phone: Bilirubin [Mass/Vol] 0.70 mg/dL 0.20-1.00 [facility] Work Phone: Comment on above: For patients on eltr ombopag therapy, use of Dimension [place] TBIL is not recommended. Chloride [Moles/Vol] 105 mmol/L 98-107 [facility] Work Phone: Eosinophils/100 WBC (Bld) 2.5 % 0-5 [facility] Work Phone: Glucose [Mass/Vol] 107 mg/dL 74-106 [facility] Work Phone: Comment on above: Fasting Glucose resu lt from 100 to 125 mg/dL suggests IMPAIRED HOMEOSTASIS per A.D.A. criteria. Neutrophils (Bld) [#/Vol] 2.5 10*3/uL 2.0-7.7 [facility] Work Phone: Neutrophils/100 WBC (Bld) 55.3 % 47-70 [facility] Work Phone: Potassium [Moles/Vol] 3.7 mmol/L 3.5-5.1 [facility] Work Phone: Protein [Mass/Vol] 7.4 g/dL 6.4-8.2 [facility] Work Phone: Sodium [Moles/Vol] 137 mmol/L 136-145 [facility] Work Phone: WBC (Bld) [#/Vol] 4.5 10*3/uL 4.4-11.0 [facility] Work Phone: Blood erythrocytes count (nu mber/volume)on 03-14-2022 RBC (Bld) [#/Vol] 5.61 10*6/uL 4.6-6.2 [facility] Work Phone: Blood hemoglobin measurement (mass/volume)on 03-14-2022 Hemoglobin (Bld) [Mass/Vol] 16.8 g/dL 13.0-16.5 [facility] Work Phone: Blood lymphocytes/100 leukoc yteson 03-14-2022 Lymphocytes/100 WBC (Bld) 31.5 % 19-41 [facility] Work Phone: Blood monocytes/100 leukocyt eson 03-14-2022 Monocytes/100 WBC (Bld) 9.6 % 0-10 [facility] Work Phone: Blood platelet mean volumeon 03-14-2022 Platelet mean volume (Bld) [Entitic vol] 11.3 fL 6.2-12.0 [facility] Work Phone: Determination of erythrocyte mean corpuscular volume (MCV)on 03-14-2022 MCV (RBC) [Entitic vol] 91.3 fL 80-94 [facility] Work Phone: Erythrocyte sedimentation ra kirby 03-14-2022 ESR (Bld) [Velocity] 8 mm/h 0-20 [facility] Work Phone: Hematocrit Auto (Bld) [Volum e fraction]on 03-14-2022 Hematocrit (Bld) [Volume fraction] 51.2 % 40-54 [facility] Work Phone: Laboratory - Chemistry and C hemistry - challengeon 03-14-2022 ALP [Catalytic activity/Vol] 79 U/L 45-117 [facility] Work Phone: ALT [Catalytic activity/Vol] 45 U/L 16-61 [facility] Work Phone: CO2 [Moles/Vol] 25.0 mmol/L 21.0-32.0 [facility] Work Phone: Globulin (S) [Mass/Vol] 3.7 g/dL 2.2-4.2 [facility] Work Phone: Urea nitrogen/Creatinine [Mass ratio] 15.7 mg/mg 10-20 [facility] Work Phone: Laboratory - Hematology and Cell countson 03-14-2022 Erythrocyte distribution width (RBC) [Entitic vol] 43.0 fL 35.1-43.9 [facility] Work Phone: Erythrocyte distribution width (RBC) [Ratio] 12.8 % 11.6-14.6 [facility] Work Phone: Immature granulocytes/100 WBC (Bld) 0.200 % 0.0-0.9 [facility] Work Phone: Comment on above: IG% - Immature Granu locytes (promyelocytes, myelocytes and metamyelocytes) > 1% indicates that a LEFT SHIFT is Present. MCH (RBC) [Entitic mass] 29.9 pg 27.0-32.0 [facility] Work Phone: Nucleated RBC/100 WBC (Bld) [Ratio] 0 % 0-5 [facility] Work Phone: MCHC Auto (RBC) [Mass/Vol]on 03-14-2022 MCHC (RBC) [Mass/Vol] 32.8 g/dL 32-36 [facility] Work Phone: No Panel Informationon 03-14 Estimated GFR (MDRD) Amer 73 mL/min >60 [facility] Work Phone: Comment on above: GFR Calc Estimated GFR (MDRD) Non-Af Amer 61 mL/min >60 [facility] Work Phone: Comment on above: Non- GFR Calc Thyroid Stimulating Hormone (TSH) 1.56 uIU/mL 0.358-3.74 [facility] Work Phone: Platelets bldon 03-14-2022 Platelets (Bld) [#/Vol] 196 10*3/uL 150-450 [facility] Work Phone: Serum or plasma albumin jessica urement (mass/volume)on 03-14-2022 Albumin [Mass/Vol] 3.7 g/dL 3.2-5.0 [facility] Work Phone: Serum or plasma albumin/glob ulin mass ratioon 03-14-2022 Albumin/Globulin [Mass ratio] 1.0 {ratio} 0.9-2.4 [facility] Work Phone: Serum or plasma calcium jessica urement (mass/volume)on 03-14-2022 Calcium [Mass/Vol] 9.1 mg/dL 8.5-10.1 [facility] Work Phone: Serum or plasma creatinine m easurement (mass/volume)on 03-14-2022 Creatinine [Mass/Vol] 1.27 mg/dL 0.70-1.30 [facility] Work Phone: Comment on above: The validity of the calculated GFR & GFRAA in patients over 70 years has not been determined. Clinical correlation is essential. Serum or plasma urea nitroge n measurement (mass/volume)on 03-14-2022 Urea nitrogen [Mass/Vol] 20 mg/dL 7-18 [facility] Work Phone: Thin prep Papanicolaou smear with manual screeningon 03-14-2022 Thin prep Papanicolaou smear with manual screening 25 U/L 15-37 [facility] Work Phone: Thin prep Papanicolaou smear with manual screening 7 5-15 [facility] Work Phone: Encounters Encounter Date Encounter Type Care Provider Facility Start: 06-27-2024 ambulatory [facility] Facility: [facility] Start: 09-01-2022 End: 09-01-2022 ambulatory [facility] Work Phone: Start: 09-01-2022 End: 09-01-2022 Patient encounter procedure [facility], [facility] Start: 03-14-2022 End: 03-14-2022 Patient encounter procedure [facility], [facility] Procedures Date Procedure Procedure Detail Performing Clinician Start: 09-01-2022 CT of face Payers Date Payer Category Payer Medicare [id number] 2024 Self-pay [id number] 2024 Unknown [id number] Private Health Insurance [id number] Unknown [id number] Unknown [id number] Social History Date Type Detail Facility Start: 09-16-2020 End: 09-16-2020 Tobacco smoking status NHIS Unknown if ever smoked [facility] Start: 12-05-2018 Non-smoker [facility] Start: 1955 Sex Assigned At Male W [facility] Evaluation note Note Date & Type Note Facility Evaluation note No assessment information availa ble [facility] Work Phone: Family History No Family History Records Found Relationship Condition Age at Onset Recorded Date/T dwain father Malignant neoplasm Unknown mother Malignant neoplasm Unknown grandfather Cerebrovascular accident (CVA) Unknown Advance Directives No Advanced Directives Records Found Advance Directive Response Recorded Date/ Time Living Will No December 05, 2018 10:27am Power of Software Licensing Executive No December 05 10:27am Advance Directive Response Recorded Date/ Time Living Will No December 05, 2018 9:27am Power of Software Licensing Executive No December 05 9:27am Chief Complaint and Reason for Visit Chief Complaint SINUSITIS Summary Purpose Additional Source Comments Goals (unrecognized section and content) Goals may be documented in a n alternate sectionGoals may be documented in an alternate section Care Teams (unrecognized sec tion and content) Team Status: Active Member Role Status Dates Dr. Poly Pang MD Family Provider Active Dr. Poly Pang MD Primary Care Provider Active Team Status: Inactive Member Role Status Dates Dr. Poly Pang MD Primary Care Provider Active Dr. Daniel Perkins MD Attending Provider, Refe rring Provider Active (unrecognized sect ion and content) No Status Records Found INFORMATION SOURCE (unrecogn ized section and content) DATE CREATED AUTHOR 06/29/2024 [facility] FOR RECORDS PERTAINING TO PATIENTS WHO ARE OR HAVE BEEN ENROLLED IN A CHEMICAL DEPENDENCY/SUBSTANCEABUSE PROGRAM, SOME INFORMATION MAY BE OMITTED. This clinical summary was aggregated from multiple sources. Caution should be exercised in using it in the provision of clinical care. This summary normalizes information from multiple sources, and as a consequence, information in this document may materially change the coding, format and clinical context of patient data. In addition, data may be omitted in some cases. CLINICAL DECISIONS SHOULD BE BASED ON THE PRIMARY CLINICAL RECORDS. [facility] [employer], [facility]. provides no warranty or guarantee of the accuracy or completeness of information in this document.
--- NOTE | 2025-08-04 19:17 | STRESSREP ---
Stress Test Report Exercise stress test. Date Test Performed: 08/04/2025 69-year-old man with a history of chest pain. Stress protocol: Resting EKG demonstrates normal sinus rhythm with a rate of 74 bpm resting blood pressure is 132/88 mmHg. The patient exercised according to the regular Sam protocol for a total duration of 9 minutes and 30 seconds attaining a maximum heart rate of 142 bpm which was 92% of maximum predicted heart rate; the maximum workload was 11.7 metabolic equivalents. At rest, there were no ST or T wave changes noted and at peak exercise there were no ST changes to meet criteria for ischemia. No clinical angina was noted the test was terminated due to leg fatigue. The peak blood pressure was 160/80 mmHg. Rate-pressure product was 20,000. Conclusion: Exercise stress test with no evidence of ischemia at a high workload. No arrhythmias noted.
== END | disposition home or self-care (01) ==
LOC: CVS 07:06
PROVIDERS: PCP Family Medicine; Referring Provider Family Medicine; Visit Provider Family Medicine
DX: R07.9 Chest pain, unspecified (principal); R00.0 Tachycardia, unspecified
CPT/HCPCS: 93017; 93306